=== PATIENT | female | born 1965 | race Caucasian/White ===

== ENCOUNTER 2024-04-16 18:44 | Inpatient (IN) ==
[2024-04-16 22:49] LABS: ABS Lymphocytes 0.7 10^3/uL (1.0-4.8); ABS Monocytes 0.8 10^3/uL (0.0-0.9); ABS Neutrophils 4.3 10^3/uL (1.5-7.6); Eosinophil % 0.3 %; Hemoglobin 10.9 g/dL (11.5-14.3); Lymphocyte % 11.7 %; Mean Corpuscular Hemoglobin 35.9 pg (27-33); Mean Corpuscular Hgb Conc 35.1 g/dL (31-36); Mean Corpuscular Volume 102.4 fL (80-97); Nucleated Red Blood Cells % 0.1 %/100WBC (0.0-0.8); Platelet Count 167 10^3/uL (150-450); Red Blood Count 3.03 10^6/uL (3.63-4.92); Red Cell Distribution Width 16.7 % (12-17); White Blood Count 5.8 10^3/uL (3.8-11.8)
[2024-04-16 23:09] LABS: ALT 69 U/L (7-52); AST 77 U/L (13-39); Albumin/Globulin Ratio 1.7 (1-3); Alkaline Phosphatase 90 U/L (35-149); Anion Gap 13 mmol/L (2-16); Blood Urea Nitrogen 13 mg/dL (6-24); CO2 Carbon Dioxide 27 mmol/L (22-32); Calcium 9.8 mg/dL (8.6-10.3); Chloride 95 mmol/L (101-111); Creatinine, Serum 0.75 mg/dL (0.51-0.95); Globulin 2.3 g/dL (2-4); Glucose 112 mg/dL (70-100); Potassium 3.1 mmol/L (3.5-5.0); Sodium 135 mmol/L (135-145); Total Bilirubin 0.7 mg/dL (0.2-1.0); Total Protein 6.3 g/dL (6.4-8.9); eGFR CKD-EPI 91.7 (>60)
[2024-04-16] MEDS: Lactated Ringers 1000 ml BAG 1,000 ML IV ONE (23:09)
[2024-04-17 01:40] LABS: Urine Appearance Turbid; Urine Bilirubin Negative (Negative); Urine Blood Negative (Negative); Urine Color Yellow; Urine Glucose Negative (Negative); Urine Ketones Trace (Negative); Urine Nitrite Negative (Negative); Urine Protein Trace (Negative); Urine Urobilinogen Negative (Negative); Urine pH 6.5 (5.0-8.0)
[2024-04-17 01:45] LABS: Urine Benzodiazepine Screen Presumptive Positive (None Detect); Urine Cannabinoids Screen Presumptive Positive (None Detect); Urine Opiates Screen None Detected (None Detect)
[2024-04-17 01:59] LABS: Urine Bacteria 1+ /HPF (Absent); Urine Red Blood Cell Trace(0-2/hpf) /HPF (0-Trace); Urine Squamous Epithelial Cell Present /HPF (Absent); Urine White Blood Cell 2+(11-20/hpf) /HPF (0-Trace)
[2024-04-17] MEDS ORDERED: Albuterol HFA INHALER 8 gm MDI INH PRN (02:25)
[2024-04-17] MEDS ORDERED: Senna TAB 8.6 mg TAB PO PRN (02:25)
[2024-04-17 02:52] LABS: Cholesterol 178 mg/dL; HDL Cholesterol 59.9 mg/dL; LDL Cholesterol 102 mg/dL; Triglycerides 80 mg/dL
[2024-04-17 03:07] LABS: TSH Ultra Thyroid Stim Horm 0.87 mcIU/mL (0.34-5.60)
[2024-04-17 03:14] LABS: Magnesium 1.7 mg/dL (1.9-2.7)
[2024-04-17 03:19] LABS: Vitamin B12 > 1450 pg/mL (180-914)
[2024-04-17] MEDS: Enoxaparin 40 MG/0.4 ML SYR SUBCUT SCH (03:51)
[2024-04-17 07:44] LABS: ABS Lymphocytes 0.6 10^3/uL (1.0-4.8); ABS Monocytes 0.6 10^3/uL (0.0-0.9); ABS Neutrophils 3.7 10^3/uL (1.5-7.6); Eosinophil % 0.3 %; Hematocrit 33.1 % (35-45); Hemoglobin 11.4 g/dL (11.5-14.3); Lymphocyte % 12.4 %; Mean Corpuscular Hemoglobin 35.8 pg (27-33); Mean Corpuscular Hgb Conc 34.6 g/dL (31-36); Mean Corpuscular Volume 103.6 fL (80-97); Mean Platelet Volume 8.4 fL (7.5-11.2); Nucleated Red Blood Cells % 0.1 %/100WBC (0.0-0.8); Platelet Count 176 10^3/uL (150-450); Red Cell Distribution Width 16.5 % (12-17); White Blood Count 4.9 10^3/uL (3.8-11.8)
[2024-04-17] MEDS: Gadoteridol (CONTRAST) 279.3 MG/ML 10 ML IV ONE (08:20)
[2024-04-17 08:21] LABS: Albumin/Globulin Ratio 1.7 (1-3); Calcium 9.1 mg/dL (8.6-10.3); Creatinine, Serum 0.63 mg/dL (0.51-0.95); Globulin 2.4 g/dL (2-4); Total Bilirubin 0.7 mg/dL (0.2-1.0); Total Protein 6.4 g/dL (6.4-8.9); eGFR CKD-EPI 102.1 (>60)
[2024-04-17] MEDS: Potassium Chloride LIQUID 20 MEQ/15 ML LIQUID PO SCH (09:29)
[2024-04-17] MEDS: Fluticasone NASAL SPRAY 50MCG 16 gm SPRAY BTL INTRANASAL SCH (09:33)
[2024-04-17 10:39] LABS: Magnesium 1.7 mg/dL (1.9-2.7)
[2024-04-17] MEDS: Dexamethasone IV 4 MG/ML VIAL 1 ml VIAL IV SLOW PU SCH (11:02)
[2024-04-17] MEDS: KCL 20 MEQ/100 ML IVPREMIX 20 MEQ/100 ML BAG IV SCH (11:06)
[2024-04-17] MEDS: cefTRIAXone 1 gm/50 mL D5W 1 GM/50 ML BAG IV SCH ×2 (15:52→15:54)
[2024-04-18 08:19] LABS: ABS Lymphocytes 0.4 10^3/uL (1.0-4.8); ABS Monocytes 0.2 10^3/uL (0.0-0.9); ABS Neutrophils 7.1 10^3/uL (1.5-7.6); Hemoglobin 13.5 g/dL (11.5-14.3); Lymphocyte % 4.8 %; Mean Corpuscular Hemoglobin 35.5 pg (27-33); Mean Corpuscular Hgb Conc 34.5 g/dL (31-36); Mean Corpuscular Volume 102.8 fL (80-97); Mean Platelet Volume 8.4 fL (7.5-11.2); Nucleated Red Blood Cells % 0.1 %/100WBC (0.0-0.8); Platelet Count 209 10^3/uL (150-450); Red Blood Count 3.79 10^6/uL (3.63-4.92); Red Cell Distribution Width 16.9 % (12-17); White Blood Count 7.7 10^3/uL (3.8-11.8)
[2024-04-18 09:28] LABS: Blood Urea Nitrogen 12 mg/dL (6-24); CO2 Carbon Dioxide 20 mmol/L (22-32); Calcium 9.6 mg/dL (8.6-10.3); Chloride 98 mmol/L (101-111); Creatinine, Serum 0.64 mg/dL (0.51-0.95); Glucose 116 mg/dL (70-100); Sodium 132 mmol/L (135-145); eGFR CKD-EPI 101.7 (>60)
[2024-04-18 09:40] LABS: Anion Gap 14 mmol/L (2-16)
[2024-04-18] MEDS: levETIRAcetam 500 MG IVPREMIX 500 MG/100 ML BAG IV SCH (12:14)
[2024-04-18] MEDS: Dexamethasone IV 4 MG/ML VIAL 1 ml VIAL IV SLOW PU SCH (21:28)
[2024-04-19 06:08] LABS: ABS Lymphocytes 0.4 10^3/uL (1.0-4.8); ABS Monocytes 0.4 10^3/uL (0.0-0.9); ABS Neutrophils 5.8 10^3/uL (1.5-7.6); ABS Nucleated RBC 0.01 10^3/ul; Hematocrit 36.2 % (35-45); Hemoglobin 12.4 g/dL (11.5-14.3); Lymphocyte % 6.6 %; Mean Corpuscular Hgb Conc 34.2 g/dL (31-36); Mean Corpuscular Volume 102.4 fL (80-97); Mean Platelet Volume 8.1 fL (7.5-11.2); Nucleated Red Blood Cells % 0.1 %/100WBC (0.0-0.8); Platelet Count 249 10^3/uL (150-450); Red Blood Count 3.54 10^6/uL (3.63-4.92); Red Cell Distribution Width 16.6 % (12-17); White Blood Count 6.6 10^3/uL (3.8-11.8)
[2024-04-19 06:45] LABS: Calcium 9.3 mg/dL (8.6-10.3); Creatinine, Serum 0.65 mg/dL (0.51-0.95); Magnesium 1.8 mg/dL (1.9-2.7); Potassium 4.4 mmol/L (3.5-5.0); eGFR CKD-EPI 101.4 (>60)
[2024-04-19] MEDS: Magnesium Sulfate 2 gm BAG 2 GM/50 ML BAG IVPB ONE (14:07)
[2024-04-20 05:42] LABS: ABS Lymphocytes 0.5 10^3/uL (1.0-4.8); ABS Monocytes 0.5 10^3/uL (0.0-0.9); ABS Neutrophils 5.4 10^3/uL (1.5-7.6); Hematocrit 35.5 % (35-45); Hemoglobin 12.2 g/dL (11.5-14.3); Mean Corpuscular Hemoglobin 35.3 pg (27-33); Mean Corpuscular Hgb Conc 34.5 g/dL (31-36); Mean Corpuscular Volume 102.4 fL (80-97); Mean Platelet Volume 7.5 fL (7.5-11.2); Platelet Count 252 10^3/uL (150-450); Red Blood Count 3.47 10^6/uL (3.63-4.92); Red Cell Distribution Width 16.8 % (12-17); White Blood Count 6.4 10^3/uL (3.8-11.8)
[2024-04-20 06:22] LABS: Calcium 9.2 mg/dL (8.6-10.3); Creatinine, Serum 0.57 mg/dL (0.51-0.95); Magnesium 2.2 mg/dL (1.9-2.7); Potassium 4.4 mmol/L (3.5-5.0); eGFR CKD-EPI 104.6 (>60)
[2024-04-20] MEDS ORDERED: Senna TAB 8.6 mg TAB PO PRN (16:09)
[2024-04-20] MEDS: Polyethylene Glycol 3350 17 GM PACKET PO SCH (18:40)
[2024-04-21] MEDS: Calcium Carb (TUMS) 500 mg CHEW TAB PO ONE (17:40)
[2024-04-22 06:22] VITALS: BP 149/91
== END 2024-04-22 10:20 | disposition hospice, inpatient (51) | DRG 55 ==
LOC: EDHOLD 18:44 → ED 18:44 → SUATTDRO 04-17 01:23 → MED 04-17 15:32 → SUATTDRO 04-18 11:12
PROVIDERS: ADMIT Internal Medicine; ATTEND Internal Medicine